=== PATIENT | female | born 1990 | race Two or more races ===

== ENCOUNTER 2023-08-25 14:16 | Outpatient (CLI) | payer OTHER ==
[~2023-08-25 14:16] MED LIST: SEPTRA DS TABLE1 TAB PO; TRAMADOL HCL50 MG PO
== END 2023-08-25 14:17 | disposition home or self-care (01) ==
LOC: PRENATAL 14:16
PROVIDERS: ATTEND Obstetrics & Gynecology Maternal & Fetal Medicine
DX: O35.3XX0 Maternal care for (suspected) damage to fetus from viral disease in mother, not applicable or unspecified (principal); O44.00 Complete placenta previa NOS or without hemorrhage, unspecified trimester; O09.529 Supervision of elderly multigravida, unspecified trimester; O34.219 Maternal care for unspecified type scar from previous cesarean delivery; O24.419 Gestational diabetes mellitus in pregnancy, unspecified control; Z3A.22 22 weeks gestation of pregnancy